=== PATIENT | female | born 1985 | race Caucasian/White ===

== ENCOUNTER 2017-05-21 11:47 | Emergency (ER) | payer OTHER ==
[~2017-05-21] VITALS: Ht 162.6 cm; Wt 77.1 kg
[~2017-05-21 11:47] MED LIST: ASMANEX TW0.22 MG/A1 IH; BACTRIM DS 8001 TA1 PO; CLARITIN 10MG T10 MG PO; FEOSOL45 MG PO; FERROUS SULFAT325 M2 PO; LORTAB 5/500 501 TAB PO; MULTI VITAMINS1 TAB PO; OMEGA PO; PERCOCET 5/3251 EACH PO; PROBIOTIC FORMU1 CA1 PO; VERAMYST27.5 MCG/A NS; VITAMIN B121000 MC2 SL; VITAMIN C500 M4 PO
[2017-05-21 12:05] LABS: URINE BILIRUBIN - DIPSTICK NEGATIVE (NEG); URINE BLOOD TRACE-INTACT (NEG)
--- NOTE | 2017-05-21 12:15 | Emergency Room Report ---
History of Present Illness Time Seen by [id number] Presenting Problem in Triage Pt arrived:Walked Presenting Problem:PT ADVISES SHE FOUND OUT YESTERDAY SHE WAS AND ADVISES THAT YESTERDAY SHE HAD SOME SPOTTING OF BRIGHT RED BLOOD AND CRAMPING. ACCORDING TO PT SHE THINKS SHE MAY BE APPROX. 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 N Clinical Suspician of Infection? N Mental Status: 1 - Regular (Normal Baseline) Sepsis Risk:Low Sepsis Risk Have you (or family members/close friends) recently traveled outside the [place]? N If Yes, where/when: Have you had exposure to infectious disease within the past month? N TB? Other? Specify: Comment The patient says she just found out yesterday that she was . She has been having some spotting and cramping since yesterday. No current pain. No heavy bleeding. She is 6, para 4, AB 1. Her rolled seat trimmer is Dr. Weaver. ALLERGIES Coded Allergies: No Known Allergies (09/14/15) Home Medications Reported Medications No Known Home Medications History Medical History General CAD? No Angina: No [place]: No Hypertension? No Hyperlipidemia? No CHF? No DVT? No PE? No COPD? No Asthma? Yes Anemia? No GERD? No Gastric ulcers? No GI Bleed? No Hernia? No Thyroid Problems? No Hypothyroidism? No CVA? No Seizures? No Diabetes? No Renal Insuffiency? No End Stage Renal Disease? No UTI? No Stones? No BPH? No GB Disease: No Nephritic Syndrome? No Asplenia? No Hepatitis? No Sickle Cell Disease? No Arthritis? No Migraines? No Cataracts? No Glaucoma? No MRSA? No HIV? No TB? No Anxiety? No Depression? No Cancer? No More? 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 Physical Exam Vital Signs Vital Signs Date Time Temp Pulse Resp B/P Pulse O2 O2 Flow FiO2 Ox Delivery Rate 05/21 1441 98.0 72 16 115/71 98 05/21 1401 72 16 115/71 98 05/21 1153 98.0 84 16 126/83 98 General Appearance normal appearance, WD/WN Eye Exam - bilateral eye normal exam, bilateral eye PERRL, bilateral eye EOMI Ear, Nose, Throat hearing grossly normal, normal ENT inspection Neck normal inspection, non-tender, supple, full range of motion Respiratory Status Yes: trachea midline, chest symmetrical, non tender chest. No: respiratory distress. Lung Sounds bilateral: normal breath sounds, lungs clear. Cardiovascular normal exam, regular rate/rhythm, no peripheral edema, no gallop, no JVD, no murmur, no rub, normal peripheral pulses Peripheral Pulses Pulses normal Yes Gastrointestinal normal bowel sounds, normal exam, non tender, soft, no organomegaly Back normal inspection, no CVA tenderness, no vertebral tenderness Extremities non-tender, normal range of motion, normal inspection Neurologic alert, heavy duty truck mechanic II-XII nml as tested, normal exam, oriented x 3 Mental status normal mood/affect Skin intact, normal color, warm/dry Comments Pelvic ultrasound was performed before pelvic examination could be performed. The diesel service technician states there was no bleeding, no blood in the cervix, cervix was closed. I do not feel pelvic examination will add any further information. Medical Decision Making LABS/Meds/Orders Pt receiving controlled substance in ED? No Results/Orders Laboratory Tests 05/21/17 1210: Sodium 138, Potassium 3.5, Chloride 104, Carbon Dioxide 26, BUN 11, Creatinine 1.0, Estimated Creat Clear 100, Estimated GFR (MDRD) 65, Glucose 93, Calcium 8.6 , Total Bilirubin 0.8, AST 14 L, ALT 20, Alkaline Phosphatase 67, Total Protein 8.3 H, Albumin 4.2, Globulin 4.1 H, Albumin/Globulin Ratio 1.0 L, Beta HCG, Quant 2188.1, WBC 7.5, RBC 4.50, Hgb 14.1, Hct 41.3, MCV 91.7, RDW 12.2, Plt Count 286, MPV 7.2 L, Gran % 54.1, Gran # 4.1, Lymphocytes % 38.1, Monocytes % 4.6, Eosinophils % 2.7, Basophils % 0.5, Lymphocytes # 2.9, Monocytes # 0.4, Eosinophils # 0.2, Basophils # 0.0, PUBS MCHC 34.1, MCH 31.3 H 05/21/17 1200: Urine Color YELLOW, Urine Appearance CLEAR, Urine pH 6.0, Ur Specific [place] 1.025, Urine Protein NEGATIVE, Urine Ketones NEGATIVE, Urine Blood TRACE-INTACT, Urine Nitrate NEGATIVE, Urine Bilirubin NEGATIVE, Urine Urobilinogen 0.2, Ur Leukocyte Esterase 1+ H, Urine RBC OCC, Urine WBC 3-5, Ur Squamous Epith Cells OCC, Urine Bacteria TRACE, Urine Mucus 4+, Urine Glucose NEGATIVE Current Medication Orders Sig/Jarvis Start time Last Medication Dose Route Stop Time Status Admin Sodium Chloride 10 ML PRN PRN 05/21 1215 DCD IV 05/22 1202 Orders Procedure Date/time Status CULTURE, URINE 05/21 1243 Active US TRANSVAGINAL PREG 05/21 1222 Active GEN NSG/PT REQ (NOT FOR MEDS!) 05/21 1222 Active IV SALINE LOCK 05/21 1202 Active CBC WITH AUTO DIFF 05/21 1202 Complete CHEM 12 PROFILE 05/21 1202 Complete BETA-HCG, QUANT 05/21 1202 Complete URINALYSIS/COMPLETE 05/21 1201 Complete URINE 05/21 1201 Complete XRAY/CT/US XRAY/CT/US Ultrasound pelvis Comment As per [facility] procedure, ultrasound report received from radio/tv technician: Small cystic area in the endometrium. No definite pole. No adnexal masses or free fluid. No blood in cervix. Departure Departure Disposition DC Home or Self Care(routine) Clinical Impression Primary Impression: Threatened miscarriage Condition STABLE Referrals Roland GUNN,Melecio Dave Call Dr. Weaver's office today. Arrange appointment to have blood drawn in 2 days to repeat beta hCG level. Schedule an appointment for follow-up and repeat ultrasound. Patient Instructions DI for Threatened Additional Instructions Return to the emergency room if heavy bleeding or severe pain. Prescriptions Current Visit Scripts No Known Home Medications ED Critical Care Critical Care No at 1249
--- NOTE | 2017-05-21 12:15 | Emergency Room Report ---
History of Present Illness Time Seen by [id number] Presenting Problem in Triage Pt arrived:Walked Presenting Problem:PT ADVISES SHE FOUND OUT YESTERDAY SHE WAS AND ADVISES THAT YESTERDAY SHE HAD SOME SPOTTING OF BRIGHT RED BLOOD AND CRAMPING. ACCORDING TO PT SHE THINKS SHE MAY BE APPROX. 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 N Clinical Suspician of Infection? N Mental Status: 1 - Regular (Normal Baseline) Sepsis Risk:Low Sepsis Risk Have you (or family members/close friends) recently traveled outside the [place]? N If Yes, where/when: Have you had exposure to infectious disease within the past month? N TB? Other? Specify: Comment The patient says she just found out yesterday that she was . She has been having some spotting and cramping since yesterday. No current pain. No heavy bleeding. She is 6, para 4, AB 1. Her interventional physician is Dr. Weaver. ALLERGIES Coded Allergies: No Known Allergies (09/14/15) Home Medications Reported Medications No Known Home Medications History Medical History General CAD? No Angina: No [place]: No Hypertension? No Hyperlipidemia? No CHF? No DVT? No PE? No COPD? No Asthma? Yes Anemia? No GERD? No Gastric ulcers? No GI Bleed? No Hernia? No Thyroid Problems? No Hypothyroidism? No CVA? No Seizures? No Diabetes? No Renal Insuffiency? No End Stage Renal Disease? No UTI? No Stones? No BPH? No GB Disease: No Nephritic Syndrome? No Asplenia? No Hepatitis? No Sickle Cell Disease? No Arthritis? No Migraines? No Cataracts? No Glaucoma? No MRSA? No HIV? No TB? No Anxiety? No Depression? No Cancer? No More? 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 Physical Exam Vital Signs Vital Signs Date Time Temp Pulse Resp B/P Pulse O2 O2 Flow FiO2 Ox Delivery Rate 05/21 1441 98.0 72 16 115/71 98 05/21 1401 72 16 115/71 98 05/21 1153 98.0 84 16 126/83 98 General Appearance normal appearance, WD/WN Eye Exam - bilateral eye normal exam, bilateral eye PERRL, bilateral eye EOMI Ear, Nose, Throat hearing grossly normal, normal ENT inspection Neck normal inspection, non-tender, supple, full range of motion Respiratory Status Yes: trachea midline, chest symmetrical, non tender chest. No: respiratory distress. Lung Sounds bilateral: normal breath sounds, lungs clear. Cardiovascular normal exam, regular rate/rhythm, no peripheral edema, no gallop, no JVD, no murmur, no rub, normal peripheral pulses Peripheral Pulses Pulses normal Yes Gastrointestinal normal bowel sounds, normal exam, non tender, soft, no organomegaly Back normal inspection, no CVA tenderness, no vertebral tenderness Extremities non-tender, normal range of motion, normal inspection Neurologic alert, yarn examiner II-XII nml as tested, normal exam, oriented x 3 Mental status normal mood/affect Skin intact, normal color, warm/dry Comments Pelvic ultrasound was performed before pelvic examination could be performed. The optical engineering technician states there was no bleeding, no blood in the cervix, cervix was closed. I do not feel pelvic examination will add any further information. Medical Decision Making LABS/Meds/Orders Pt receiving controlled substance in ED? No Results/Orders Laboratory Tests 05/21/17 1210: Sodium 138, Potassium 3.5, Chloride 104, Carbon Dioxide 26, BUN 11, Creatinine 1.0, Estimated Creat Clear 100, Estimated GFR (MDRD) 65, Glucose 93, Calcium 8.6 , Total Bilirubin 0.8, AST 14 L, ALT 20, Alkaline Phosphatase 67, Total Protein 8.3 H, Albumin 4.2, Globulin 4.1 H, Albumin/Globulin Ratio 1.0 L, Beta HCG, Quant 2188.1, WBC 7.5, RBC 4.50, Hgb 14.1, Hct 41.3, MCV 91.7, RDW 12.2, Plt Count 286, MPV 7.2 L, Gran % 54.1, Gran # 4.1, Lymphocytes % 38.1, Monocytes % 4.6, Eosinophils % 2.7, Basophils % 0.5, Lymphocytes # 2.9, Monocytes # 0.4, Eosinophils # 0.2, Basophils # 0.0, PUBS MCHC 34.1, MCH 31.3 H 05/21/17 1200: Urine Color YELLOW, Urine Appearance CLEAR, Urine pH 6.0, Ur Specific [place] 1.025, Urine Protein NEGATIVE, Urine Ketones NEGATIVE, Urine Blood TRACE-INTACT, Urine Nitrate NEGATIVE, Urine Bilirubin NEGATIVE, Urine Urobilinogen 0.2, Ur Leukocyte Esterase 1+ H, Urine RBC OCC, Urine WBC 3-5, Ur Squamous Epith Cells OCC, Urine Bacteria TRACE, Urine Mucus 4+, Urine Glucose NEGATIVE Current Medication Orders Sig/Jarvis Start time Last Medication Dose Route Stop Time Status Admin Sodium Chloride 10 ML PRN PRN 05/21 1215 DCD IV 05/22 1202 Orders Procedure Date/time Status CULTURE, URINE 05/21 1243 Active US TRANSVAGINAL PREG 05/21 1222 Active GEN NSG/PT REQ (NOT FOR MEDS!) 05/21 1222 Active IV SALINE LOCK 05/21 1202 Active CBC WITH AUTO DIFF 05/21 1202 Complete CHEM 12 PROFILE 05/21 1202 Complete BETA-HCG, QUANT 05/21 1202 Complete URINALYSIS/COMPLETE 05/21 1201 Complete URINE 05/21 1201 Complete XRAY/CT/US XRAY/CT/US Ultrasound pelvis Comment As per [facility] procedure, ultrasound report received from management services technician: Small cystic area in the endometrium. No definite pole. No adnexal masses or free fluid. No blood in cervix. Departure Departure Disposition DC Home or Self Care(routine) Clinical Impression Primary Impression: Threatened miscarriage Condition STABLE Referrals Roland GUNN,Melecio Dave Call Dr. Weaver's office today. Arrange appointment to have blood drawn in 2 days to repeat beta hCG level. Schedule an appointment for follow-up and repeat ultrasound. Patient Instructions DI for Threatened Additional Instructions Return to the emergency room if heavy bleeding or severe pain. Prescriptions Current Visit Scripts No Known Home Medications ED Critical Care Critical Care No at 2815
[2017-05-21 12:17] LABS: LYMPH # 2.9 K/mm3 (0.7-4.5); LYMPH % 38.1 % (10-50.0)
[2017-05-21 12:24] LABS: URINE SQUAMOUS CELLS OCC #/hpf (0-5)
[2017-05-21 12:25] LABS: HEMOGLOBIN 14.1 g/dL (12.2-16.2)
[2017-05-21 14:41] VITALS: BP 115/71
--- NOTE | 2017-05-21 17:44 | RADIOLOGY REPORT PS360 ---
US TRANSVAGINAL PREG HISTORY: Bleeding and cramping at 6 weeks gestation preg, bleeding ORDERING PHYSICIAN: Siddharth Franklin MD PATIENT AGE: 31 years COMPARISON: None FINDINGS: A small cystic intrauterine structure is noted. No pole, No heart tones apparent at this time. No yolk sac. This could be due to a very small gestational sac or even pseudosac. Adnexa are unremarkable. No cul-de-sac fluid. IMPRESSION: Cannot confirm viability at this time. Small cystic area is present within the endometrium and could be a very early gestational sac or a pseudosac. An ectopic cannot be excluded based on this exam. Suggest correlation with serial beta hCGs and follow-up ultrasound
== END 2017-05-21 14:42 | disposition home or self-care (01) ==
LOC: ER 11:47
PROVIDERS: Emergency Medicine
DX: O20.0 Threatened abortion (principal); Z3A.01 Less than 8 weeks gestation of pregnancy

== ENCOUNTER 2017-06-02 16:22 | Emergency (ER) | payer OTHER ==
[~2017-06-02] VITALS: Ht 162.6 cm; Wt 77.1 kg
--- NOTE | 2017-06-02 17:02 | Emergency Room Report ---
History of Present Illness Time Seen by [id number] Presenting Problem in Triage Pt arrived:Walked Presenting Problem:PT IS APPROX 5 WEEKS PREG , PT HAD BEEN SPOTTING OFF AND ON FOR APPROX 10 DAYS , PT STARTED HAVING INCREASED BLEEDING TODAY . 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 N Clinical Suspician of Infection? N Mental Status: 1 - Regular (Normal Baseline) Sepsis Risk:Low Sepsis Risk Have you (or family members/close friends) recently traveled outside the [place]? N If Yes, where/when: Have you had exposure to infectious disease within the past month? N TB? Other? Specify: 31 years old white female who is 6 para 4 A 1, she started spotting on May 21 and when she found that she was . She underwent serial quantitative hCG and ultrasound which revealed that she is 5 weeks on May 30 (3 DAYS AGO). Yesterday at 1 PM she HAD SEXUAL INTERCOURSE when she started spotting again. Today she started passing blood clots she will return to the ER for evaluation. She denies having dizziness weakness chest pain palpitations or shortness of breath. She is a patient of Dr. Kang. HER BLOOD GROUP IS A+ PER OLD RECORDS. Source patient, RN notes reviewed, family, old records Exam Limitations no limitations ALLERGIES Coded Allergies: No Known Allergies (09/14/15) Home Medications Reported Medications No Known Home Medications History Medical History General CAD? No Angina: No [place]: No Hypertension? No Hyperlipidemia? No CHF? No DVT? No PE? No COPD? No Asthma? Yes Anemia? No GERD? No Gastric ulcers? No GI Bleed? No Hernia? No Thyroid Problems? No Hypothyroidism? No CVA? No Seizures? No Diabetes? No Renal Insuffiency? No End Stage Renal Disease? No UTI? No Stones? No BPH? No GB Disease: No Nephritic Syndrome? No Asplenia? No Hepatitis? No Sickle Cell Disease? No Arthritis? No Migraines? No Cataracts? No Glaucoma? No MRSA? No HIV? No TB? No Anxiety? No Depression? No Cancer? No More? 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 Respiratory no symptoms reported Cardiovascular no symptoms reported Gastrointestinal see HPI, abdominal pain (SUPRAPUBIC PAIN) Genitourinary see HPI, abnormal vaginal bleeding. Musculoskeletal no symptoms reported Skin no symptoms reported Psychiatric/Neurological no symptoms reported Physical Exam Vital Signs Vital Signs Date Time Temp Pulse Resp B/P Pulse O2 O2 Flow FiO2 Ox Delivery Rate 06/02 1805 75 20 101/42 98 06/02 1710 67 20 102/67 100 06/02 1709 109 83/48 06/02 1709 88 95/62 06/02 1709 77 102/67 06/02 1635 98.6 76 20 122/73 100 - WBC >12,000 or <4,000 or 10% bands? 2 or more SIRS Criteria Met? B/P:122/73 MAP:89 Creatinine >2.0? UA output<0.5ml/kg/hr for 2 hrs? Platelet count >100,000? Lactate >2.0mmol/1? INR >1.2 or PTT > than 60 sec? Evidence of Organ Dysfunction? Provider documented clinical suspician of infection? N Sepsis Criteria Count: 1 Sepsis Risk: Low Sepsis Risk General Appearance normal appearance, WD/WN Eye Exam - bilateral eye normal exam, bilateral eye PERRL, bilateral eye EOMI Ear, Nose, Throat hearing grossly normal, normal ENT inspection Neck normal inspection, non-tender, supple, full range of motion Respiratory Status Yes: trachea midline, chest symmetrical, non tender chest. No: respiratory distress. Lung Sounds bilateral: normal breath sounds, lungs clear. Cardiovascular normal exam, regular rate/rhythm, no peripheral edema, no gallop, no JVD, no murmur, no rub, normal peripheral pulses Gastrointestinal normal bowel sounds, soft, no organomegaly, tenderness, SOFT ABDOMEN NORMOACTIVE AND NO RIGIDITY WAS SUPRAPUBIC TENDERNESS WITHOUT REBOUND Extremities non-tender, normal range of motion, normal inspection Pelvic normal external exam, normal adnexa, no cerv. motion tender, VULVA AND VAGINA WITHIN NORMAL LIMITS, NO ADNEXAL MASS OR TENDERNESS, UTERUS IS ENLARGED AND TENDER. CERVIX IS PARTIALLY OPEN BLOOD CLOTS WITHIN THE CERVICAL CANAL. SAMPLE WAS SENT TO THE LAB. THE PATIETN TOLERATED THE EXAM. Nurse present during exam? Yes Neurologic alert, personnel specialist II-XII nml as tested, normal exam, oriented x 3 Skin intact, normal color, warm/dry Lymphatic no adenopathy Medical Decision Making LABS/Meds/Orders Pt receiving controlled substance in ED? No Results/Orders Laboratory Tests 06/02/17 1705: Sodium 137, Potassium 3.8, Chloride 102, Carbon Dioxide 26, BUN 11, Creatinine 0.9, Estimated Creat Clear 111, Estimated GFR (MDRD) 74, Glucose 92, Calcium 9.5 , Total Bilirubin 0.6, AST 9 L, ALT 16, Alkaline Phosphatase 67, Total Protein 7.8, Albumin 4.1, Globulin 3.7 H, Albumin/Globulin Ratio 1.1, Beta HCG, Quant 9572.3, WBC 9.0, RBC 4.79, Hgb 14.6, Hct 43.0, MCV 89.7, RDW 12.2, Plt Count 271 , MPV 7.4, Gran % 69.9, Gran # 6.3, Lymphocytes % 24.8, Monocytes % 3.7, Eosinophils % 1.3, Basophils % 0.2, Lymphocytes # 2.3, Monocytes # 0.3, Eosinophils # 0.1, Basophils # 0.0, PUBS MCHC 33.9, MCH 30.4 Current Medication Orders Sig/Jarvis Start time Last Medication Dose Route Stop Time Status Admin Sodium Chloride 1,000 ML .STK-MED ONE 06/02 170 DC IV Sodium Chloride 1,000 ML .[id number] 06/02 1700 DC 06/02 IV 06/02 1800 1711 Sodium Chloride 10 ML PRN PRN 06/02 1700 AC IV 06/03 1652 Orders Procedure Date/time Status ORTHOSTATIC B/P 06/02 165 Active CBC WITH AUTO DIFF 06/02 165 Complete CHEM 12 PROFILE 06/02 165 Complete BETA-HCG, QUANT 06/02 165 Complete Departure Departure Time of Disposition 1659 Disposition Against Medical Advice Clinical Impression Primary Impression: in first trimester Secondary Impressions: Left against medical advice Condition STABLE Referrals Roland GUNN,Melecio Dave (Family) Additional Instructions I DISCUSSED WITHTHE PATIENT THAT AT 5 WEEKS WILL NEED TO OBTAIN LABS AND ENSURE HER SAFETY, SHE VERBALIZED UNDERSTANDING. I CALLED DR SHERMAN, DR TATUM WAS WORLD RENOWNED CHEF AND RESTAURANT OWNER WHO OFFERED TO COME FOR D&C. I INFORMED THE PATIETN AND SHE DECLINED SAYING THAT TO SAVE HIM THE TRIP AND SHE WILL LET THE BODY TAKE CARE OF THINGS NATURALLY, I MADE HER AWARE OF THE RISK, OF BLEEDING, INFECTION AND POSSIBLE . SHE WANTED TO LEAVE AND FOLLOW UP WITH DR SHERMAN IN AM. SHE WAS INFORMED IF SHE BECOMES WEAK , DIZZY OR SOAKS MORE THAN 5 PADS A DAY TORETURN IMMEDIATELY. THE PATIENT AND HER VERBALIZED UNDERSTANDING OF THE RISKS INVOLVED. Discharge Counseling Counseled pt/family regarding diagnosis, test results, medications/RX, home care, follow up needs Prescriptions Current Visit Scripts No Known Home Medications ED Critical Care Critical Care No If Critical Care minutes are documented, the time involved in the performance of seperately reportable procedures was not counted toward critical care time documented. I directly delivered medical care to this critically ill and/or injured patient. Timely evaluation and treatment was necessary to address the significant organ system(s) dysfunction present in this patient. at 1823
[2017-06-02 17:15] LABS: HEMOGLOBIN 14.6 g/dL (12.2-16.2); LYMPH # 2.3 K/mm3 (0.7-4.5); LYMPH % 24.8 % (10-50.0)
[2017-06-02 18:26] VITALS: BP 121/50
== END 2017-06-02 18:27 | disposition left against medical advice (07) ==
LOC: ER 16:22
PROVIDERS: Emergency Medicine
DX: O03.9 Complete or unspecified spontaneous abortion without complication (principal); Z53.21 Procedure and treatment not carried out due to patient leaving prior to being seen by health care provider